=== PATIENT | female | born 1950 | race Caucasian/White ===

== ENCOUNTER 2023-05-22 17:24 | Emergency (ER) | payer MEDICARE, SELFPAY ==
[2023-05-22 17:55] VITALS: BP 117/75; PULSE 87; RESP 18; TEMP 36.4; O2SAT 99
--- NOTE | 2023-05-22 18:31 | ED.EAR ---
HPI - Ear Problem General Chief complaint: Ear Stated complaint: lt ear discomfort Time Seen by Provider: 05/22/23 18:08 Source: patient and RN notes reviewed Mode of arrival: ambulatory Limitations: no limitations History of Present Illness HPI Narrative: Patient presents today complaining of decreased hearing from the left ear x1 week. Denies pain. She has tried 2 bricks drops without relief. Related Data Home Medications Medication Instructions Recorded Confirmed No Home Medications 05/22/23 05/22/23 Allergies Allergy/AdvReac Type Severity Reaction Status Date / Time No Known Allergies Allergy Verified 05/22/23 18:05 Review of Systems Review of Systems: CONSTITUTIONAL: Denies body aches, fever, chills, or sweats. EYES: Denies visual changes, redness, or discharge. ENT: Denies rhinorrhea, congestion, sore throat, or otalgia.+ left ear muffling CARDIOVASCULAR: Denies chest pain, palpitations, or edema. RESPIRATORY: Denies cough or dyspnea. GASTROINTESTINAL: Denies abdominal pain, nausea, vomiting, or diarrhea. GENITOURINARY: Denies dysuria or hematuria. SKIN: Denies rash, itching, or wounds. MUSCULOSKELETAL: Denies back pain, joint pain, or myalgia. NEUROLOGIC: Denies headache, numbness, tingling, or weakness. PSYCH: Denies depression or anxiety. PMFSH Comments At time of signature, I have reviewed and agree with nursing past medical, surgical, social and family history unless otherwise noted. Please see nursing chart for further information. There is no relevant family history pertinent to the presenting complaint Exam Narrative: GENERAL: Well-appearing, well-nourished, and in no acute distress. HEAD: Normocephalic, atraumatic. EYES: EOMI. No redness or drainage. Conjunctivae normal. ENT: Mucous membranes pink and moist. Bilateral cerumen impactions. See procedure note. NECK: Normal AROM. CHEST: No respiratory distress. EXTREMITIES: Normal range of motion. No edema. SKIN: Warm, dry, no rash. Capillary refill normal. Normal skin turgor. NEURO: No focal deficits. Alert and oriented x3. Gait steady. PSYCH: Normal affect. No signs of depression or anxiety. Course Course Level of Care: Express Care Visit Vital Signs Vital signs: Vital Signs Temperature 97.6 F 05/22/23 17:55 Pulse Rate 87 05/22/23 17:55 Respiratory Rate 18 05/22/23 17:55 Blood Pressure 117/75 05/22/23 17:55 Pulse Oximetry 99 05/22/23 17:55 Oxygen Delivery Room Air 05/22/23 17:55 Temperature 97.6 F 05/22/23 17:55 Pulse Rate 87 05/22/23 17:55 Respiratory Rate 18 05/22/23 17:55 Blood Pressure 117/75 05/22/23 17:55 Pulse Oximetry 99 05/22/23 17:55 Oxygen Delivery Room Air 05/22/23 17:55 Not reviewed Procedures Ear Wax Removal Both Ears: Ear Wax Removal Date: 05/22/23 Ear Wax Removal Time: 18:32 Results: Re-examined: some cerumen remains TM Examination: TM(s) intact, normal appearance Ear Canal Exam: atraumatic Patient Tolerated Procedure: well Complications: no problems Technique: ear canal irrigated and ear canal curetted Additional Comments: Most of the cerumen removed from the left ear. Cerumen removal attempted from the right, but was unsuccessful. Flushed with elephant ear with water and small amount of peroxide. Medical Decision Making MDM Narrative Medical decision making narrative: Bilateral cerumen impaction. Most of the cerumen removed from the left ear. Unsuccessful removal attempt from the right. Will refer to ENT for right-sided removal. Patient agrees with plan. Anticipatory guidance given. Differential Diagnosis Differential Diagnosis: Otitis media, otitis externa, ruptured TM, serous otitis, eustachian tube dysfunction, cerumen impaction Vital Signs Vital Signs: Vital Signs Temperature 97.6 F 05/22/23 17:55 Pulse Rate 87 05/22/23 17:55 Respiratory Rate 18 05/22/23 17:5
== END 2023-05-22 18:38 | disposition home or self-care (01) ==
PROVIDERS: Emergency Provider Nurse Practitioner
DX: H61.23 Impacted cerumen, bilateral (principal)
CPT/HCPCS: 69210; 99202; G0463